=== PATIENT | female | born 1970 | race Caucasian/White ===

== ENCOUNTER 2019-04-11 14:59 | Emergency (ER) | payer MEDICAID ==
--- NOTE | 2019-04-11 15:18 | EDM.PDOC ---
ED HPI GENERAL MEDICAL PROBLEM - General Stated Complaint: L SHOULDER PAIN Time Seen by Provider: 04/11/19 15:12 Source of Information: Reports: Patient History Limitations: Reports: No Limitations - History of Present Illness INITIAL COMMENTS - FREE TEXT/NARRATIVE: pt c/o left shoulder pain X 2 weeks, denies injuries or associated swelling, fever, chills, or Hx of similar problems, report pain is there all the times and worse with any movement of RUE, denies neck pain or any associated tingling / numbness or any other neuro sx. - Related Data Allergies Allergy/AdvReac Type Severity Reaction Status Date / Time No Known Allergies Allergy Verified 04/11/19 16:27 Home Meds: Home Meds diazePAM [Valium] 10 mg PO TID PRN #20 tab 04/11/19 [Rx] ED ROS GENERAL - Review of Systems Review Of Systems: See Below Constitutional: Reports: No Symptoms Respiratory: Reports: No Symptoms Cardiovascular: Reports: No Symptoms GI/Abdominal: Reports: No Symptoms Musculoskeletal: Reports: Shoulder Pain. Denies: Back Pain, Hand Pain, Joint Swelling, Muscle Pain, Muscle Stiffness Skin: Reports: No Symptoms Neurological: Reports: No Symptoms Psychiatric: Reports: No Symptoms ED EXAM, GENERAL - Physical Exam Exam: See Below Exam Limited By: No Limitations General Appearance: Alert, Anxious, Mild Distress Nose: Normal Inspection Head: Atraumatic, Normocephalic Neck: Normal Inspection, Supple, Non-Tender, Full Range of Motion Respiratory/Chest: No Respiratory Distress, Lungs Clear Cardiovascular: Normal Peripheral Pulses, Regular Rate, Rhythm, No Edema GI/Abdominal: Normal Bowel Sounds, Soft, Non-Tender Extremities: Normal Inspection, Other (tender over the AC joint on left side . ROM at left shoulder is partially limited secondary to pain. ) Course - Vital Signs Text/Narrative:: xray shows no acute findings. pt has shoulder pain, that seems to be related to degenerative arthritis or rotator cuff syndrome. was given toradol 60 IM, Valium 10, also rx on Valium to be used with OTC antiinflammatories, pt to follow with PCP in 1 week for re-check. Last Recorded V/S: Last Vital Signs Temp 36.2 C 04/11/19 15:11 Pulse 86 04/11/19 15:11 Resp 16 04/11/19 15:11 BP 132/79 04/11/19 15:11 Pulse Ox 96 04/11/19 15:11 - Orders/Labs/Meds Meds: Medications Discontinued Medications Generic Name Dose Route Start Last Admin Trade Name Lorelei PRN Reason Stop Dose Admin Diazepam 10 mg 04/11/19 15:19 04/11/19 15:39 Valium IM 04/11/19 15:20 10 mg ONETIME ONE Administration Ketorolac Tromethamine 60 mg 04/11/19 15:19 04/11/19 15:37 Toradol IM 04/11/19 15:20 60 mg ONETIME ONE Administration Departure - Departure Time of Disposition: 16:00 Clinical Impression: Shoulder pain - Discharge Information Prescriptions: diazePAM [Valium] 10 mg PO TID PRN #20 tab PRN Reason: Pain Instructions: Shoulder Pain, [id number] Referrals: Tana Hicks NP [Primary Care Provider] - Forms: ED Department Discharge Sepsis Event Note - Focused Exam Date Exam was Performed: 05/17/19 Time Exam was Performed: 07:34
[2019-04-11] MEDS ORDERED: Ketorolac 60 MG/2 ML SDV IM ONE (15:19)
--- NOTE | 2019-04-13 12:24 | CR ---
INDICATION: Left shoulder pain, no known trauma. LEFT SHOULDER: Three views of the left shoulder revealed no evidence of a fracture, dislocation or other significant bone or joint abnormality, including at the adjacent lung and left ribs. MTDD
== END 2019-04-11 17:25 ==
LOC: FB.ED 14:59
DX: M25.512 Pain in left shoulder (principal)
CPT/HCPCS: 73030-LT; 96372; 96374; 99283-25; J1885; J3360

== ENCOUNTER 2021-03-11 18:32 | Emergency (ER) | payer MEDICAID ==
[2021-03-11] MEDS ORDERED: Ketorolac 30 MG/ML SDV IM ONE (19:07)
[2021-03-11] MEDS ORDERED: Sodium Chloride 0.9% 10 ML Syringe FLUSH PRN (19:10)
[2021-03-11] MEDS ORDERED: Sodium Chloride 0.9% 1,000 ML IV ONE (19:11)
[2021-03-11 19:49] LABS: BASE EXCESS VENOUS,POC 2 mmol/L (-2 - 3+); PCO2 VENOUS,POC 46 mmHg (41-51); PH VENOUS,POC 7.38 pH Units (7.32-7.43)
[2021-03-11] MEDS ORDERED: Ketorolac 30 MG/ML SDV IVPUSH ONE (20:22)
[2021-03-11] MEDS ORDERED: Insulin Regular, Human 100 Units/ML 3 ML Vial IV ONE (20:22)
[2021-03-11] MEDS ORDERED: Glucagon,Human Recombinant 1 MG Vial IM PRN (20:22)
[2021-03-11] MEDS ORDERED: 50% Dextrose in Water 50 ML Syringe IVPUSH PRN (20:22)
[2021-03-11] MEDS ORDERED: cefTRIAXone 1 GM Vial IVPUSH ONE (21:54)
--- NOTE | 2021-03-11 23:14 | EDM.PDOC ---
ED HPI GENERAL MEDICAL PROBLEM - General Chief Complaint: Back Pain or Injury Stated Complaint: BACK PAIN Time Seen by Provider: 03/11/21 18:45 Source of Information: Reports: Patient History Limitations: Reports: No Limitations - History of Present Illness INITIAL COMMENTS - FREE TEXT/NARRATIVE: 50-year-old female presents to the emergency department via ambulance from her home with her Thomas to lower lumbar back pain. 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 She reports that beginning last night the pain much worse. She states it came on after she stood up for longer than she normally does while cooking and she developed sharp and spasm-like pain in her entire lower back about mid lumbar region to her tailbone. She states that she is followed by a buildings painter in and she is on gabapentin and trazodone for her pain. She has had no nausea or vomiting. She has had no bowel or bladder control problems. She has no leg weakness. Been no fevers or chills. She denies any dysuria or hematuria. She is a diabetic and when asked how her sugars are running, she states "I'm sure they're high" and tells me that she really has not checked her blood sugar for quite some time. She has no abdominal pain. No chest pain or shortness of tristan th. There are no other associated signs or symptoms. There are no other modifying factors. Onset: Other (Ongoing back pain for 4 years. Worsening since yesterday evening.) Duration: Getting Worse Quality: Reports: Sharp, Other (Spasm-like) Severity: Severe Improves with: Reports: Rest Worsens with: Reports: Other (Palpation), Movement Context: Reports: Other (As above. No known trauma to the area.) Associated Symptoms: Reports: No Other Symptoms (Except as above.) Treatments ANTISQUEAK FILLER: Reports: Other (see below) (Nothing.) Back pain Pain Score (Numeric/FACES): 10 - Related Data Allergies Allergy/AdvReac Type Severity Reaction Status Date / Time No Known Allergies Allergy Verified 03/11/21 20:12 Home Meds: Home Meds diazePAM [Valium] 10 mg PO TID PRN #20 tab 04/11/19 [Rx] Ketorolac [Toradol] 10 mg PO Q6H PRN #20 tab 03/11/21 [Rx] diazePAM [Valium.] 5 mg PO QID PRN #10 tab 03/11/21 [Rx] Sulfamethoxazole/Trimethoprim [Septra DS] 1 each PO BID 7 Days #14 tab 03/12/21 [Rx] Past Medical History HEENT History: Reports: Glaucoma Musculoskeletal History: Reports: Back Pain, Chronic, Other (See Below) Other Musculoskeletal History: Left shoulder pain ratiating to left wrist. Endocrine/Metabolic History: Reports: Diabetes, Type II, Obesity/BMI 30+ - Past Surgical History Female Surgical History: Reports: Section Musculoskeletal Surgical History: Reports: ORIF (Left elbow) Social & Family History - Tobacco Use Tobacco Use Status *Q: Never Tobacco User Second Hand Smoke Exposure: No - Caffeine Use Caffeine Use: Reports: Soda - Recreational Drug Use Recreational Drug Use: No - Living Situation & Occupation Living situation: Reports: , with Spouse Occupation: Unemployed ED ROS GENERAL - Review of Systems Review Of Systems: See Below Constitutional: Denies: Fever, Chills, Diaphoresis HEENT: Denies: Throat Pain, Throat Swelling Respiratory: Denies: Shortness of Breath, Pleuritic Chest Pain, Cough Cardiovascular: Denies: Chest Pain, Syncope Endocrine: Reports: Fatigue GI/Abdominal: Denies: Abdominal Pain, Nausea, Vomiting : Denies: Dysuria Musculoskeletal: Reports: Back Pain. Denies: Neck Pain, Arm Pain, Leg Pain Skin: Denies: Diaphoresis, Rash, Wound Neurological: Denies: Dizziness, Syncope, Weakness Psychiatric: Denies: Confusion Hematologic/Lymphatic: Denies: Easy Bleeding, Easy Bruising ED EXAM, GENERAL - Physical Exam Exam: See Below Exam Limited By: No Limitations General Appearance: Alert, Moderate Distress (Appears in acute pain. Otherwise appears nontoxic.), Obese Eye Exam: Bilateral Eye: EOMI, Normal Inspection, Other Ears: Normal External Exam, Hearing Grossly Normal Ear Exam: Bilateral Ear: Auricle Normal Nose: Normal Inspection, Normal Mucosa, No Blood Throat/Mouth: Normal Voice, No Airway Compromise, Other (Dry mucous membranes. No ketotic breath.) Head: Atraumatic Neck: Normal Inspection, Supple, Non-Tender Respiratory/Chest: No Respiratory Distress, Lungs Clear, Normal Breath Sounds, No Accessory Muscle Use, Chest Non-Tender Cardiovascular: Normal Peripheral Pulses, Regular Rate, Rhythm, No Murmur Peripheral Pulses: 2+: Radial (L), Radial (R) GI/Abdominal: Normal Bowel Sounds, Soft, Non-Tender, No Mass Back Exam: Decreased Range of Motion, Muscle Spasm, Paraspinal Tenderness, Vertebral Tenderness, Other (No crepitus or bony deformity.). No: CVA Tenderness (R), CVA Tenderness (L) Extremities: Normal Inspection, Normal Range of Motion, Normal Capillary Refill Neurological: Alert, Oriented, CN II-XII Intact, Normal Cognition, No Motor/Sensory Deficits Psychiatric: Anxious Skin Exam: Warm, Dry, Intact, Normal Color, No Rash Course - Vital Signs Last Recorded V/S: Last Vital Signs Temp 36.6 C 03/12/21 00:00 Pulse 82 03/12/21 00:00 Resp 18 03/12/21 00:00 BP 132/85 03/12/21 00:00 Pulse Ox 97 03/12/21 00:00 - Orders/Labs/Meds Orders: Active Orders 24 hr Category Date Time Status Peripheral IV Insertion Adult [OM.PC] Routine Oth 03/11/21 19:10 Ordered Labs: Laboratory Tests 03/11/21 03/11/21 03/11/21 Range/Units 18:50 19:09 19:28 WBC 8.2 (3.0-10.3) x10-3/uL RBC 4.69 (3.60-5.20) x10(6)uL Hgb 12.9 (11.4-15.5) g/dL Hct 39.4 (34.2-48.2) % MCV 84.0 (76.7-100.5) fL MCH 27.5 (23.9-33.9) pg MCHC 32.7 (31.9-34.8) g/dL RDW 13.0 (12.3-16.5) % Plt Count 216 (151-488) x10(3)uL MPV 7.3 (7.1-12.4) fL Neut % (Auto) 69.1 (30.8-76.2) % Lymph % (Auto) 23.2 (18.4-52.1) % [place] % (Auto) 5.0 (4.4-15.7) % Eos % (Auto) 2.0 (0.6-8.1) % Baso % (Auto) 0.7 (0.2-1.5) % Neut # (Auto) 5.7 (1.5-6.3) x10-3/uL Lymph # (Auto) 1.9 (1.0-4.4) x10-3/uL [place] # (Auto) 0.4 (0.3-1.0) x10-3/uL Eos # (Auto) 0.2 (0.0-0.8) x10-3/uL Baso # (Auto) 0.1 (0.0-0.1) x10-3/uL POC VBG pH (7.32-7.43) pH Units POC VBG pCO2 (41-51) mmHg POC VBG HCO3 (22-29) mmol/L VBG Base Excess (-2 - 3+) mmol/L O2 Delivery Device Oxygen Flow Rate LPM Sodium (135-145) mmol/L Potassium (3.5-5.3) mmol/L Chloride (100-110) mmol/L Carbon Dioxide (21-32) mmol/L BUN (7-18) mg/dL Creatinine (0.55-1.02) mg/dL Est Cr Clr Drug Dosing mL/min Estimated GFR (MDRD) (>60) BUN/Creatinine Ratio (9-20) Glucose (80-116) mg/dL POC Glucose 564 H* (80-116) mg/dL Calcium (8.6-10.2) mg/dL Magnesium (1.8-2.5) mg/dL Total Bilirubin (0.1-1.3) mg/dL AST (5-25) IU/L ALT (12-36) U/L Alkaline Phosphatase (56-112) IU/L Total Protein (6.0-8.0) g/dL Albumin (3.5-5.2) g/dL Globulin g/dL Albumin/Globulin Ratio Urine Color Yellow (YELLOW) Urine Appearance Slightly cloudy (CLEAR) Urine pH 6.0 (5.0-6.5) Ur Specific [place] 1.010 (1.010-1.025) Urine Protein Negative (NEGATIVE) mg/dL Urine Glucose (UA) >1000 H (NORMAL) mg/dL Urine Ketones Negative (NEGATIVE) mg/dL Urine Occult Blood Moderate H (NEGATIVE) Urine Nitrite Negative (NEGATIVE) Urine Bilirubin Negative (NEGATIVE) Urine Urobilinogen Normal (NEGATIVE) mg/dL Ur Leukocyte Esterase Large H (NEGATIVE) Urine RBC 5-10 H (0-5) Urine WBC 30-40 H (0-5) Ur Squamous Epith Cells Occasional (NS,R,O) Urine Bacteria Few H (NS) 03/11/21 03/11/21 03/11/21 Range/Units 19:28 19:45 21:58 WBC (3.0-10.3) x10-3/uL RBC (3.60-5.20) x10(6)uL Hgb (11.4-15.5) g/dL Hct (34.2-48.2) % MCV (76.7-100.5) fL MCH (23.9-33.9) pg MCHC (31.9-34.8) g/dL RDW (12.3-16.5) % Plt Count (151-488) x10(3)uL MPV (7.1-12.4) fL Neut % (Auto) (30.8-76.2) % Lymph % (Auto) (18.4-52.1) % [place] % (Auto) (4.4-15.7) % Eos % (Auto) (0.6-8.1) % Baso % (Auto) (0.2-1.5) % Neut # (Auto) (1.5-6.3) x10-3/uL Lymph # (Auto) (1.0-4.4) x10-3/uL [place] # (Auto) (0.3-1.0) x10-3/uL Eos # (Auto) (0.0-0.8) x10-3/uL Baso # (Auto) (0.0-0.1) x10-3/uL POC VBG pH 7.38 (7.32-7.43) pH Units POC VBG pCO2 46 (41-51) mmHg POC VBG HCO3 28 (22-29) mmol/L VBG Base Excess 2 (-2 - 3+) mmol/L O2 Delivery Device Room air Oxygen Flow Rate 0 LPM Sodium 127 L (135-145) mmol/L Potassium 4.3 (3.5-5.3) mmol/L Chloride 93 L (100-110) mmol/L Carbon Dioxide 30 (21-32) mmol/L BUN 10 (7-18) mg/dL Creatinine 1.1 H (0.55-1.02) mg/dL Est Cr Clr Drug Dosing 49.49 mL/min Estimated GFR (MDRD) 52 L (>60) BUN/Creatinine Ratio 9.1 (9-20) Glucose 624 H* (80-116) mg/dL POC Glucose 499 H* (80-116) mg/dL Calcium 9.1 (8.6-10.2) mg/dL Magnesium 1.8 (1.8-2.5) mg/dL Total Bilirubin 0.4 (0.1-1.3) mg/dL AST 7 (5-25) IU/L ALT 20 (12-36) U/L Alkaline Phosphatase 120 H (56-112) IU/L Total Protein 8.8 H (6.0-8.0) g/dL Albumin 3.1 L (3.5-5.2) g/dL Globulin 5.7 g/dL Albumin/Globulin Ratio 0.5 Urine Color (YELLOW) Urine Appearance (CLEAR) Urine pH (5.0-6.5) Ur Specific [place] (1.010-1.025) Urine Protein (NEGATIVE) mg/dL Urine Glucose (UA) (NORMAL) mg/dL Urine Ketones (NEGATIVE) mg/dL Urine Occult Blood (NEGATIVE) Urine Nitrite (NEGATIVE) Urine Bilirubin (NEGATIVE) Urine Urobilinogen (NEGATIVE) mg/dL Ur Leukocyte Esterase (NEGATIVE) Urine RBC (0-5) Urine WBC (0-5) Ur Squamous Epith Cells (NS,R,O) Urine Bacteria (NS) 03/11/21 03/11/21 Range/Units 22:55 23:54 WBC (3.0-10.3) x10-3/uL RBC (3.60-5.20) x10(6)uL Hgb (11.4-15.5) g/dL Hct (34.2-48.2) % MCV (76.7-100.5) fL MCH (23.9-33.9) pg MCHC (31.9-34.8) g/dL RDW (12.3-16.5) % Plt Count (151-488) x10(3)uL MPV (7.1-12.4) fL Neut % (Auto) (30.8-76.2) % Lymph % (Auto) (18.4-52.1) % [place] % (Auto) (4.4-15.7) % Eos % (Auto) (0.6-8.1) % Baso % (Auto) (0.2-1.5) % Neut # (Auto) (1.5-6.3) x10-3/uL Lymph # (Auto) (1.0-4.4) x10-3/uL [place] # (Auto) (0.3-1.0) x10-3/uL Eos # (Auto) (0.0-0.8) x10-3/uL Baso # (Auto) (0.0-0.1) x10-3/uL POC VBG pH (7.32-7.43) pH Units POC VBG pCO2 (41-51) mmHg POC VBG HCO3 (22-29) mmol/L VBG Base Excess (-2 - 3+) mmol/L O2 Delivery Device Oxygen Flow Rate LPM Sodium (135-145) mmol/L Potassium (3.5-5.3) mmol/L Chloride (100-110) mmol/L Carbon Dioxide (21-32) mmol/L BUN (7-18) mg/dL Creatinine (0.55-1.02) mg/dL Est Cr Clr Drug Dosing mL/min Estimated GFR (MDRD) (>60) BUN/Creatinine Ratio (9-20) Glucose (80-116) mg/dL POC Glucose 406 H* D 395 H (80-116) mg/dL Calcium (8.6-10.2) mg/dL Magnesium (1.8-2.5) mg/dL Total Bilirubin (0.1-1.3) mg/dL AST (5-25) IU/L ALT (12-36) U/L Alkaline Phosphatase (56-112) IU/L Total Protein (6.0-8.0) g/dL Albumin (3.5-5.2) g/dL Globulin g/dL Albumin/Globulin Ratio Urine Color (YELLOW) Urine Appearance (CLEAR) Urine pH (5.0-6.5) Ur Specific [place] (1.010-1.025) Urine Protein (NEGATIVE) mg/dL Urine Glucose (UA) (NORMAL) mg/dL Urine Ketones (NEGATIVE) mg/dL Urine Occult Blood (NEGATIVE) Urine Nitrite (NEGATIVE) Urine Bilirubin (NEGATIVE) Urine Urobilinogen (NEGATIVE) mg/dL Ur Leukocyte Esterase (NEGATIVE) Urine RBC (0-5) Urine WBC (0-5) Ur Squamous Epith Cells (NS,R,O) Urine Bacteria (NS) Meds: Medications Discontinued Medications Generic Name Dose Route Start Last Admin Trade Name Freq PRN Reason Stop Dose Admin Ceftriaxone Sodium 1 gm 03/11/21 21:54 03/11/21 22:01 Ceftriaxone 1 Gm Vial IVPUSH 03/11/21 21:55 1 gm ONETIME ONE Administration Dextrose/Water 50 ml 03/11/21 20:22 50% Dextrose In Water 50 Ml Syringe IVPUSH ASDIRECTED PRN Hypoglycemia Diazepam 10 mg 03/11/21 19:07 03/11/21 21:36 Diazepam 10 Mg/2 Ml Syringe IM 03/11/21 19:08 Not Given ONETIME ONE Diazepam 5 mg 03/11/21 19:11 03/11/21 20:19 Diazepam 10 Mg/2 Ml Syringe IVPUSH 03/11/21 19:12 5 mg ONETIME ONE Administration Glucagon 1 mg 03/11/21 20:22 Glucagon,Human Recombinant 1 Mg Vial IM ASDIRECTED PRN Hypoglycemia Sodium Chloride 1,000 mls @ 999 mls/hr 03/11/21 19:11 03/11/21 20:19 Normal Saline IV 03/11/21 20:11 999 mls/hr .BOLUS ONE Administration Insulin Human Regular 12 unit 03/11/21 20:22 03/11/21 21:38 Insulin Regular, Human 100 Units/Ml 3 Ml Vial IV 03/11/21 20:23 12 units ONETIME ONE Administration Ketorolac Tromethamine 30 mg 03/11/21 19:07 03/11/21 21:36 Ketorolac 30 Mg/Ml Sdv IM 03/11/21 19:08 Not Given ONETIME ONE Ketorolac Tromethamine 30 mg 03/11/21 20:22 03/11/21 21:38 Ketorolac 30 Mg/Ml Sdv IVPUSH 03/11/21 20:23 30 mg ONETIME ONE Administration Sodium Chloride 10 ml 03/11/21 19:10 03/11/21 22:02 Sodium Chloride 0.9% 10 Ml Syringe FLUSH 10 ml ASDIRECTED PRN Administration Keep Vein Open - Re-Assessments/Exams Free Text/Narrative Re-Assessment/Exam: 03/11/21 20:40: White blood cell count was 8.2. Hemoglobin is 12.9. Platelet count is normal. Venous pH 7.38 with a PCO2 of 46. Sodium is 127. Potassium is 4.3. Bicarbonate was 30. BUN is 10 and creatinine is 1.1. Glucose is 624. Magnesium was 1.8. LFTs are normal. A urinalysis did show greater than 1000 glucose and it also showed red blood cells and white blood cells with bacteria present. This was sent for culture. The patient did have an IV established and was given IV normal saline as a bolus. She was also given insulin 12 units regular IV. She was given IV Valium for her back muscle pain and muscle spasm. She was also given Toradol IV for her pain and she is resting much more comfortably. She also is able to move better. We will continue to IV hydrate her and follow her blood sugars every hour until they have been stabilized. 03/11/21 23:00: The patient is awake and alert. She is not tachycardic. Her blood sugar is down to the 400 range and she is awake and alert. She is feeling better with decreased pain and increased mobility. Her other labs are reassuring except for evidence of a urinary tract infection. She was treated with Rocephin 1 g IV for this. I did discuss with the patient that she is not following her diabetic diet and her diabetes is not under control. She needs to increase her fluid intake. She should avoid any constipated sweets and she should avoid any soda pop with sugar as well. She does need to follow-up with her primary provider this week. I will give her a prescription for Bactrim DS to treat the urinary tract infection, a prescription for Valium for muscle relaxer and oral Toradol for pain. Precautions and reasons for return to the emergency department were discussed with the patient while she was in the emergency department and were detailed in the patient's discharge instructions. 03/12/21 23:55: Her repeat blood sugar is now 395. She is awake and alert. She is much more mobile than she was and her pain is down to a 4/10. Departure - Departure Time of Disposition: 23:16 Disposition: Home, Self-Care 01 Condition: Fair Clinical Impression: Acute exacerbation of chronic low back pain Diabetes mellitus type 2, uncontrolled Qualifiers: Glycemic state: with hyperglycemia Qualified Code(s): E11.65 - Type 2 diabetes mellitus with hyperglycemia UTI (urinary tract infection) Qualifiers: Urinary tract infection type: site unspecified Hematuria presence: without hematuria Qualified Code(s): N39.0 - Urinary tract infection, site not specified - Discharge Information Prescriptions: Sulfamethoxazole/Trimethoprim [Septra DS] 1 each PO BID 7 Days #14 tab Ketorolac [Toradol] 10 mg PO Q6H PRN #20 tab PRN Reason: Moderate to severe pain diazePAM [Valium.] 5 mg PO QID PRN #10 tab PRN Reason: Muscle spasm or muscle pain Instructions: Urinary Tract Infection, Adult, [id number], Type 2 Diabetes Mellitus, Self-Care, Adult, [id number] Referrals: Tana Hicks NP [Primary Care Provider] - Forms: ED Department Discharge Additional Instructions: Your blood sugar was greater than 600 in the emergency department initially. We have gotten it down to around 400 after some IV fluids and some insulin given to you. You also appear to have a urinary tract infection. Your sodium was somewhat low but this was artificially lowered because of your elevated blood sugar. You do appear to be having an acute exacerbation of your chronic back pain. Medication as prescribed for this (Valium 5 mg, Toradol 10 mg). Follow-up with your primary doctor this week. You need to check your blood sugars more frequently and you need to follow your diabetic diet. You also need to increase your fluid intake and you should avoid any drink that has sugar in it. Back to the emergency department for leg weakness, bowel or bladder control problems, fever or any other concerning signs or symptoms. Sepsis Event Note (ED) - Evaluation Sepsis Screening Result: No Definite Risk - Focused Exam Vital Signs: Vital Signs Temp Pulse Resp BP Pulse Ox 03/12/21 00:00 36.6 C 82 18 132/85 97 - My Orders Last 24 Hours: My Active Orders 03/11/21 19:10 Peripheral IV Insertion Adult [OM.PC] Routine - Assessment/Plan Last 24 Hours: My Active Orders 03/11/21 19:10 Peripheral IV Insertion Adult [OM.PC] Routine
== END 2021-03-12 00:20 | disposition home or self-care (01) ==
LOC: FB.ED 18:32 → SUPCPDRO 18:32 → FB.ED 03-12 00:20
DX: N39.0 Urinary tract infection, site not specified (principal); E11.65 Type 2 diabetes mellitus with hyperglycemia; E66.9 Obesity, unspecified; Z68.30 Body mass index [BMI] 30.0-30.9, adult
CPT/HCPCS: 36415; 80053; 81001; 82947; 83735; 85025; 96374; 96375; 99283; J0696; J1815; J1885; J3360; J7030

== ENCOUNTER 2022-11-20 03:39 | Emergency (ER) | payer MEDICAID ==
[2022-11-20] MEDS: Sodium Chloride 0.9% 1,000 ML IV SCH ×2 (04:12→05:50)
[2022-11-20] MEDS: Morphine 4 MG/ML VIAL IVPUSH ONE (04:14)
[2022-11-20] MEDS: Ondansetron 4 MG/2 ML SDV IVPUSH ONE (04:14)
[2022-11-20 04:35] LABS: A/G RATIO 0.8; ALANINE AMINOTRANSFERASE,ALT 21 U/L (12-36); ALBUMIN 3.3 g/dL (3.5-5.2); ALKALINE PHOSPHATASE 121 IU/L (56-112); ASPARTATE AMNIOTRANSFERASE,AST 13 IU/L (5-25); BILIRUBIN TOTAL 0.6 mg/dL (0.1-1.3); BLOOD UREA NITROGEN,BUN 16 mg/dL (7-18); CALCIUM 9.3 mg/dL (8.6-10.2); CARBON DIOXIDE,CO2 24 mmol/L (21-32); CHLORIDE,CL 95 mmol/L (100-110); EST CRCL DRUG DOSING (CG) 63.27 mL/min; ESTIMATED GFR 67 mL/min (>60); POTASSIUM,K 4.2 mmol/L (3.5-5.3); PROTEIN TOTAL,TP 7.6 g/dL (6.0-8.0); SODIUM,NA 130 mmol/L (135-145)
[2022-11-20] MEDS ORDERED: 50% Dextrose in Water 50 ML Syringe IVPUSH PRN (04:42)
[2022-11-20] MEDS ORDERED: Glucagon,Human Recombinant 1 MG Vial IM PRN (04:42)
[2022-11-20 04:43] LABS: BASOPHILS PERCENT AUTO 0.4 % (0.2-1.5); EOSINOPHILS ABSOLUTE AUTO 0.2 x10-3/uL (0.0-0.8); EOSINOPHILS PERCENT AUTO 1.7 % (0.6-8.1); HEMATOCRIT 40.5 % (34.2-48.2); HEMOGLOBIN 13.5 g/dL (11.4-15.5); MEAN CORPUSCULAR HGB CONC 33.4 g/dL (31.9-34.8); MEAN CORPUSCULAR VOLUME 83.6 fL (76.7-100.5); MEAN PLATELET VOLUME 7.5 fL (7.1-12.4); MONOCYTES ABSOLUTE AUTO 0.6 x10-3/uL (0.3-1.0); MONOCYTES PERCENT AUTO 5.3 % (4.4-15.7); NEUTROPHILS ABSOLUTE AUTO 9.7 x10-3/uL (1.5-6.3); NEUTROPHILS PERCENT AUTO 83.6 % (30.8-76.2); PLATELET COUNT,PLT 200 x10(3)uL (151-488); RED BLOOD CELL COUNT 4.84 x10(6)uL (3.60-5.20); RED CELL DISTRIBUTION WIDTH 12.9 % (12.3-16.5); WHITE BLOOD CELL COUNT,WBC 11.6 x10-3/uL (3.0-10.3)
[2022-11-20] MEDS: Prochlorperazine 10 MG in Sodium Chloride 0.9% 50 ML IV ONE (04:48)
[2022-11-20] MEDS: Insulin Lispro 100 Unit/ML 3 ML KwikPen SUBCUT STA (04:51)
[2022-11-20 04:56] LABS: GLUCOSE RANDOM 539 mg/dL (80-116)
[2022-11-20 05:27] LABS: BILIRUBIN,URINE NEGATIVE (NEGATIVE); GLUCOSE,URINE >1000 mg/dL (NORMAL); KETONES,URINE 15 mg/dL (NEGATIVE); LEUKOCYTE ESTERASE,URINE LARGE (NEGATIVE); NITRITE,URINE POSITIVE (NEGATIVE); OCCULT BLOOD,URINE LARGE (NEGATIVE); PROTEIN,URINE NEGATIVE (NEGATIVE); UROBILINOGEN,URINE NORMAL (NEGATIVE)
[2022-11-20 05:27] LABS: HEMOGLOBIN A1C > 16.0 % (<5.7)
[2022-11-20 05:30] LABS: APPEARANCE,URINE CLOUDY (CLEAR); COLOR,URINE YELLOW (YELLOW)
[2022-11-20 05:31] LABS: BACTERIA,URINE MODERATE (NS); SQUAMOUS EPITHELIAL CELLS,UR OCCASIONAL (NS,R,O); WBC,URINE 75-100 (0-5)
[2022-11-20] MEDS: Iopamidol 755 Mg/ML 200 ML Bottle IV ONE (05:40)
[2022-11-20] MEDS: Sulfamethoxazole/Trimethoprim 800-160 MG Tab PO ONE (06:45)
[2022-11-20] MEDS: Ketorolac 30 MG/ML SDV IVPUSH ONE (06:45)
== END 2022-11-20 07:13 | disposition home or self-care (01) ==
LOC: FB.ED 03:39
DX: N30.90 Cystitis, unspecified without hematuria (principal); E78.00 Pure hypercholesterolemia, unspecified; I10 Essential (primary) hypertension; E11.9 Type 2 diabetes mellitus without complications; E66.9 Obesity, unspecified; Z68.34 Body mass index [BMI] 34.0-34.9, adult; Z98.890 Other specified postprocedural states; Z79.899 Other long term (current) drug therapy; Z79.4 Long term (current) use of insulin
CPT/HCPCS: 36415; 74177; 80053; 81001; 82150; 82947; 83036; 83690; 85025; 87086; 87088; 87186; 96361; 96365; 96375; 99285; A9270; J0780; J1815; J1885; J2270; J2405; J3490; J7030; Q9967

== ENCOUNTER 2023-07-20 18:17 | Emergency (ER) | payer MEDICAID ==
[2023-07-20] MEDS: Sodium Chloride 0.9% 10 ML Syringe FLUSH PRN (18:45)
[2023-07-20] MEDS: Sodium Chloride 0.9% 1,000 ML IV SCH (18:50)
[2023-07-20] MEDS: HYDROmorphone 2 MG/ML SDV IVPUSH ONE (18:57)
[2023-07-20 19:04] LABS: HEMATOCRIT 34.8 % (34.2-48.2); HEMOGLOBIN 11.6 g/dL (11.4-15.5); MEAN CORPUSCULAR HEMOGLOBIN 27.1 pg (23.9-33.9); MEAN CORPUSCULAR HGB CONC 33.2 g/dL (31.9-34.8); MEAN CORPUSCULAR VOLUME 81.6 fL (76.7-100.5); MEAN PLATELET VOLUME 7.3 fL (7.1-12.4); PLATELET COUNT,PLT 308 x10(3)uL (151-488); RED BLOOD CELL COUNT 4.26 x10(6)uL (3.60-5.20); RED CELL DISTRIBUTION WIDTH 13.8 % (12.3-16.5); WHITE BLOOD CELL COUNT,WBC 18.4 x10-3/uL (3.0-10.3)
[2023-07-20 19:14] LABS: TROPONIN I 4.9 pg/mL (4.0-60.3)
[2023-07-20 19:17] LABS: A/G RATIO 0.4; ALANINE AMINOTRANSFERASE,ALT 13 U/L (12-36); ALBUMIN 2.3 g/dL (3.5-5.2); ALKALINE PHOSPHATASE 111 IU/L (56-112); ASPARTATE AMNIOTRANSFERASE,AST 11 IU/L (5-25); BILIRUBIN TOTAL 0.7 mg/dL (0.1-1.3); BLOOD UREA NITROGEN,BUN 12 mg/dL (7-18); CARBON DIOXIDE,CO2 27 mmol/L (21-32); CHLORIDE,CL 94 mmol/L (100-110); CREATININE 1.2 mg/dL (0.55-1.02); EST CRCL DRUG DOSING (CG) 42.39 mL/min; ESTIMATED GFR 54 mL/min (>60); POTASSIUM,K 3.7 mmol/L (3.5-5.3); PROTEIN TOTAL,TP 8.7 g/dL (6.0-8.0); SODIUM,NA 132 mmol/L (135-145)
[2023-07-20 19:31] LABS: GLUCOSE RANDOM 429 mg/dL (80-116)
[2023-07-20 19:33] LABS: C-REACTIVE PROTEIN 26.02 mg/dL (<0.50)
[2023-07-20] MEDS: Ondansetron 4 MG/2 ML SDV IVPUSH ONE (19:46)
[2023-07-20 19:48] LABS: BAND PERCENT MAN 5 % (0-6); LYMPHOCYTES PERCENT MAN 13 % (13-37); MONOCYTES PERCENT MAN 5 % (4-12); SEG NEUTROPHILS PERCENT MAN 77 % (46-82)
[2023-07-20 19:59] LABS: INFLUENZA A NAA NEGATIVE (NEGATIVE); INFLUENZA B NAA NEGATIVE (NEGATIVE); RESPIRATORY SYNCYTIAL VIR NAA NEGATIVE (NEGATIVE)
[2023-07-20 20:00] LABS: CORONAVIRUS COVID-19 NAA NEGATIVE (NEGATIVE)
[2023-07-20 20:19] LABS: BILIRUBIN,URINE NEGATIVE (NEGATIVE); GLUCOSE,URINE >1000 mg/dL (NORMAL); KETONES,URINE NEGATIVE (NEGATIVE); LEUKOCYTE ESTERASE,URINE LARGE (NEGATIVE); NITRITE,URINE NEGATIVE (NEGATIVE); OCCULT BLOOD,URINE LARGE (NEGATIVE); PROTEIN,URINE 100 mg/dL (NEGATIVE); UROBILINOGEN,URINE 1 mg/dL (NEGATIVE)
[2023-07-20 20:24] LABS: APPEARANCE,URINE CLOUDY (CLEAR); COLOR,URINE YELLOW (YELLOW); SQUAMOUS EPITHELIAL CELLS,UR OCCASIONAL (NS,R,O); WBC,URINE PACKED (0-5)
[2023-07-20 20:25] LABS: BACTERIA,URINE MODERATE (NS)
[2023-07-20] MEDS: Iopamidol 755 Mg/ML 100 ML Bottle IV SCH (20:37)
[2023-07-20] MEDS ORDERED: VANCOmycin 1 GM/200 ML 1 GM in Premix Bag 1 BAG IV ONE (21:00)
[2023-07-20] MEDS: Ampicillin/Sulbactam Na 3 GM in Sodium Chloride 0.9% 100 ML IV ONE (22:01)
[2023-07-20 22:45] LABS: LACTIC ACID 1.7 mmol/L (0.4-2.0)
[2023-07-20] MEDS: VANCOmycin 2 GM/400 ML 2 GM in Premix Bag 1 BAG IV ONE (23:06)
== END 2023-07-20 23:33 ==
LOC: FB.ED 18:17
DX: G89.29 Other chronic pain (principal); M54.50 Low back pain, unspecified; N30.00 Acute cystitis without hematuria; E11.65 Type 2 diabetes mellitus with hyperglycemia; R06.02 Shortness of breath; I10 Essential (primary) hypertension; E78.00 Pure hypercholesterolemia, unspecified; E66.9 Obesity, unspecified; Z68.39 Body mass index [BMI] 39.0-39.9, adult; Z79.4 Long term (current) use of insulin; Z79.899 Other long term (current) drug therapy
CPT/HCPCS: 0241U; 36415; 71260; 74177; 80053; 81001; 82550; 83605; 83880; 84484; 85025; 85379; 86140; 87040; 93005; 93010; 96361; 96365; 96367; 96375; 99285; J0295; J1170; J2405; J3370; J3490; J7030; Q9967

== ENCOUNTER 2024-03-20 18:38 | Inpatient (IN) | payer MEDICAID ==
[2024-03-20] MEDS: Sodium Chloride 0.9% 10 ML Syringe FLUSH PRN (18:48)
[2024-03-20 19:25] LABS: BASOPHILS ABSOLUTE AUTO 0.1 x10-3/uL (0.0-0.1); BASOPHILS PERCENT AUTO 0.5 % (0.2-1.5); EOSINOPHILS ABSOLUTE AUTO 0.2 x10-3/uL (0.0-0.8); EOSINOPHILS PERCENT AUTO 1.6 % (0.6-8.1); HEMATOCRIT 36.3 % (34.2-48.2); HEMOGLOBIN 12.3 g/dL (11.4-15.5); LYMPHOCYTES ABSOLUTE AUTO 1.4 x10-3/uL (1.0-4.4); LYMPHOCYTES PERCENT AUTO 13.5 % (18.4-52.1); MEAN CORPUSCULAR HEMOGLOBIN 28.4 pg (23.9-33.9); MEAN CORPUSCULAR HGB CONC 33.7 g/dL (31.9-34.8); MEAN CORPUSCULAR VOLUME 84.1 fL (76.7-100.5); MEAN PLATELET VOLUME 7.8 fL (7.1-12.4); MONOCYTES ABSOLUTE AUTO 0.6 x10-3/uL (0.3-1.0); MONOCYTES PERCENT AUTO 5.6 % (4.4-15.7); NEUTROPHILS ABSOLUTE AUTO 8.2 x10-3/uL (1.5-6.3); NEUTROPHILS PERCENT AUTO 78.8 % (30.8-76.2); PLATELET COUNT,PLT 238 x10(3)uL (151-488); RED BLOOD CELL COUNT 4.32 x10(6)uL (3.60-5.20); RED CELL DISTRIBUTION WIDTH 13.1 % (12.3-16.5); WHITE BLOOD CELL COUNT,WBC 10.4 x10-3/uL (3.0-10.3)
[2024-03-20 19:32] LABS: BLOOD UREA NITROGEN,BUN 17 mg/dL (7-18); BUN/CREATININE RATIO 13.1 (9-20); CALCIUM 8.9 mg/dL (8.6-10.2); CARBON DIOXIDE,CO2 25 mmol/L (21-32); CHLORIDE,CL 98 mmol/L (100-110); CREATININE 1.3 mg/dL (0.55-1.02); EST CRCL DRUG DOSING (CG) 38.67 mL/min; ESTIMATED GFR 49 mL/min (>60); POTASSIUM,K 4.6 mmol/L (3.5-5.3); SODIUM,NA 134 mmol/L (135-145)
[2024-03-20 19:33] LABS: BASE EXCESS VENOUS,POC -1 mmol/L (-2 - 3+); PCO2 VENOUS,POC 25 mmHg (41-51); PH VENOUS,POC 7.52 pH Units (7.32-7.43)
[2024-03-20 19:38] LABS: A/G RATIO 0.5; ALANINE AMINOTRANSFERASE,ALT 16 U/L (12-36); ALBUMIN 2.5 g/dL (3.5-5.2); ALKALINE PHOSPHATASE 105 IU/L (56-112); ASPARTATE AMNIOTRANSFERASE,AST 18 IU/L (5-25); BILIRUBIN TOTAL 0.3 mg/dL (0.1-1.3); MAGNESIUM 1.4 mg/dL (1.8-2.5); PROTEIN TOTAL,TP 7.1 g/dL (6.0-8.0)
[2024-03-20 19:42] LABS: GLUCOSE RANDOM 692 mg/dL (80-116)
[2024-03-20] MEDS ORDERED: Glucagon,Human Recombinant 1 MG Vial IM PRN ×2 (19:50→22:50)
[2024-03-20] MEDS ORDERED: 50% Dextrose in Water 50 ML Syringe IVPUSH PRN ×2 (19:50→22:50)
[2024-03-20] MEDS: Insulin Regular, Human 100 Units/ML 10 ML Vial IV ONE (19:59)
[2024-03-20] MEDS: Sodium Chloride 0.9% 1,000 ML IV ONE ×2 (19:59→22:29)
[2024-03-20] MEDS: Albuterol/Ipratropium 3.0-0.5 MG/3 ML Neb Soln NEB ONE (20:00)
[2024-03-20] MEDS: Magnesium Oxide 400 MG Tab PO ONE (20:00)
[2024-03-20 20:12] LABS: INFLUENZA A NAA NEGATIVE (NEGATIVE); INFLUENZA B NAA NEGATIVE (NEGATIVE)
[2024-03-20 20:14] LABS: CORONAVIRUS COVID-19 NAA NEGATIVE (NEGATIVE)
[2024-03-20 20:45] LABS: BILIRUBIN,URINE NEGATIVE (NEGATIVE); GLUCOSE,URINE >1000 mg/dL (NORMAL); KETONES,URINE NEGATIVE (NEGATIVE); LEUKOCYTE ESTERASE,URINE LARGE (NEGATIVE); NITRITE,URINE NEGATIVE (NEGATIVE); OCCULT BLOOD,URINE LARGE (NEGATIVE); PROTEIN,URINE 30 mg/dL (NEGATIVE); UROBILINOGEN,URINE NORMAL (NEGATIVE)
[2024-03-20 20:51] LABS: APPEARANCE,URINE SLIGHTLY CLOUDY (CLEAR); BACTERIA,URINE MODERATE (NS); COLOR,URINE YELLOW (YELLOW); SQUAMOUS EPITHELIAL CELLS,UR FEW (NS,R,O); WBC,URINE 30-40 (0-5)
[2024-03-20] MEDS: cefTRIAXone 2 GM Vial IVPUSH ONE (22:35)
[2024-03-20] MEDS ORDERED: Ondansetron 4 MG/2 ML SDV IV PRN (22:47)
[2024-03-20] MEDS: Insulin Lispro 100 Unit/ML 3 ML KwikPen SUBCUT ONE (23:26)
[2024-03-20] MEDS: Pantoprazole 40 MG Vial IVPUSH SCH (23:26)
[2024-03-20] MEDS: Enoxaparin 40 MG/0.4 ML Syringe SUBCUT SCH (23:26)
[2024-03-20] MEDS: Doxycycline 100 MG in Sodium Chloride 0.9% 100 ML IV SCH (23:27)
[2024-03-20] MEDS: Benzonatate 100 MG Cap PO PRN (23:27)
[2024-03-20] MEDS: Nystatin Topical Powder 15 GM Bottle TOP SCH (23:42)
[2024-03-20] MEDS: Sodium Chloride 0.9% 1,000 ML IV SCH (23:45)
[2024-03-21] MEDS: Magnesium Sulfate/Water Premix 2 GM in Premix Bag 1 BAG IV ONE (00:40)
[2024-03-21] MEDS: Acetaminophen 325 MG Tab PO PRN (00:46)
[2024-03-21] MEDS: Albuterol/Ipratropium 3.0-0.5 MG/3 ML Neb Soln NEB SCH (08:21)
[2024-03-21] MEDS ORDERED: Nystatin Topical Powder 15 GM Bottle TOP SCH (09:00)
[2024-03-21 09:29] LABS: BASOPHILS ABSOLUTE AUTO 0.1 x10-3/uL (0.0-0.1); BASOPHILS PERCENT AUTO 0.9 % (0.2-1.5); EOSINOPHILS ABSOLUTE AUTO 0.2 x10-3/uL (0.0-0.8); EOSINOPHILS PERCENT AUTO 3.2 % (0.6-8.1); HEMATOCRIT 31.7 % (34.2-48.2); HEMOGLOBIN 10.7 g/dL (11.4-15.5); LYMPHOCYTES ABSOLUTE AUTO 2.6 x10-3/uL (1.0-4.4); LYMPHOCYTES PERCENT AUTO 32.8 % (18.4-52.1); MEAN CORPUSCULAR HGB CONC 33.8 g/dL (31.9-34.8); MEAN PLATELET VOLUME 7.1 fL (7.1-12.4); MONOCYTES ABSOLUTE AUTO 0.4 x10-3/uL (0.3-1.0); MONOCYTES PERCENT AUTO 5.5 % (4.4-15.7); NEUTROPHILS ABSOLUTE AUTO 4.6 x10-3/uL (1.5-6.3); NEUTROPHILS PERCENT AUTO 57.6 % (30.8-76.2); PLATELET COUNT,PLT 209 x10(3)uL (151-488); RED BLOOD CELL COUNT 3.83 x10(6)uL (3.60-5.20); RED CELL DISTRIBUTION WIDTH 13.2 % (12.3-16.5); WHITE BLOOD CELL COUNT,WBC 7.9 x10-3/uL (3.0-10.3)
[2024-03-21 09:31] LABS: BLOOD UREA NITROGEN,BUN 12 mg/dL (7-18); CALCIUM 8.2 mg/dL (8.6-10.2); CARBON DIOXIDE,CO2 27 mmol/L (21-32); CHLORIDE,CL 108 mmol/L (100-110); CREATININE 0.8 mg/dL (0.55-1.02); EST CRCL DRUG DOSING (CG) 62.84 mL/min; ESTIMATED GFR 87 mL/min (>60); GLUCOSE RANDOM 264 mg/dL (80-116); MAGNESIUM 1.9 mg/dL (1.8-2.5); POTASSIUM,K 4.3 mmol/L (3.5-5.3); SODIUM,NA 143 mmol/L (135-145)
[2024-03-21] MEDS: Magnesium Oxide 400 MG Tab PO SCH (09:44)
[2024-03-21] MEDS: Doxycycline 100 MG in Sodium Chloride 0.9% 100 ML IV SCH (11:38)
[2024-03-21] MEDS ORDERED: Glucagon,Human Recombinant 1 MG Vial IM PRN ×2 (12:41→12:42)
[2024-03-21] MEDS ORDERED: 50% Dextrose in Water 50 ML Syringe IVPUSH PRN ×2 (12:41→12:42)
[2024-03-21] MEDS: Insulin Lispro 100 Unit/ML 3 ML KwikPen SUBCUT SCH (17:43)
[2024-03-21] MEDS: Gabapentin 300 MG Cap PO SCH (20:18)
[2024-03-21] MEDS: DULoxetine 60 MG Cap PO SCH (20:18)
[2024-03-21] MEDS: Baclofen 10 MG Tab PO SCH (20:18)
[2024-03-21] MEDS: atorvaSTATin 40 MG Tab PO SCH (20:18)
[2024-03-21] MEDS: Aspirin 81 MG Tab.EC PO SCH (20:18)
[2024-03-21] MEDS: traZODone 50 MG Tab PO SCH (20:19)
[2024-03-21] MEDS: Insulin Glargine,Human Rec. Analog 100 Units/ML 3 ML Pen SUBCUT SCH (20:36)
[2024-03-21] MEDS: cefTRIAXone 2 GM Vial IVPUSH SCH (22:23)
[2024-03-22] MEDS: hydrOXYzine HCl 25 MG Tab PO PRN (00:18)
[2024-03-22 09:10] LABS: BASOPHILS ABSOLUTE AUTO 0.1 x10-3/uL (0.0-0.1); BASOPHILS PERCENT AUTO 0.8 % (0.2-1.5); EOSINOPHILS ABSOLUTE AUTO 0.3 x10-3/uL (0.0-0.8); EOSINOPHILS PERCENT AUTO 4.1 % (0.6-8.1); LYMPHOCYTES ABSOLUTE AUTO 2.4 x10-3/uL (1.0-4.4); LYMPHOCYTES PERCENT AUTO 34.7 % (18.4-52.1); MEAN CORPUSCULAR HEMOGLOBIN 27.6 pg (23.9-33.9); MEAN CORPUSCULAR HGB CONC 33.2 g/dL (31.9-34.8); MONOCYTES ABSOLUTE AUTO 0.4 x10-3/uL (0.3-1.0); MONOCYTES PERCENT AUTO 5.3 % (4.4-15.7); NEUTROPHILS ABSOLUTE AUTO 3.8 x10-3/uL (1.5-6.3); NEUTROPHILS PERCENT AUTO 55.1 % (30.8-76.2); PLATELET COUNT,PLT 224 x10(3)uL (151-488); RED BLOOD CELL COUNT 3.98 x10(6)uL (3.60-5.20)
[2024-03-22 09:12] LABS: BLOOD UREA NITROGEN,BUN 11 mg/dL (7-18); BUN/CREATININE RATIO 12.2 (9-20); CALCIUM 8.7 mg/dL (8.6-10.2); CARBON DIOXIDE,CO2 28 mmol/L (21-32); CHLORIDE,CL 107 mmol/L (100-110); CREATININE 0.9 mg/dL (0.55-1.02); EST CRCL DRUG DOSING (CG) 55.86 mL/min; ESTIMATED GFR 76 mL/min (>60); GLUCOSE RANDOM 310 mg/dL (80-116); MAGNESIUM 1.6 mg/dL (1.8-2.5); POTASSIUM,K 4.9 mmol/L (3.5-5.3); SODIUM,NA 143 mmol/L (135-145)
[2024-03-22] MEDS: Magnesium Oxide 400 MG Tab PO ONE (10:03)
[2024-03-22 10:27] LABS: HEMOGLOBIN A1C 13.2 % (<5.7)
[2024-03-22] MEDS: Insulin Lispro 100 Unit/ML 3 ML KwikPen SUBCUT SCH (12:46)
[2024-03-23 06:46] LABS: BASOPHILS ABSOLUTE AUTO 0.1 x10-3/uL (0.0-0.1); BASOPHILS PERCENT AUTO 0.7 % (0.2-1.5); EOSINOPHILS ABSOLUTE AUTO 0.3 x10-3/uL (0.0-0.8); EOSINOPHILS PERCENT AUTO 3.2 % (0.6-8.1); HEMATOCRIT 31.3 % (34.2-48.2); HEMOGLOBIN 10.6 g/dL (11.4-15.5); LYMPHOCYTES ABSOLUTE AUTO 2.6 x10-3/uL (1.0-4.4); LYMPHOCYTES PERCENT AUTO 33.3 % (18.4-52.1); MEAN CORPUSCULAR HGB CONC 33.8 g/dL (31.9-34.8); MEAN CORPUSCULAR VOLUME 82.8 fL (76.7-100.5); MEAN PLATELET VOLUME 6.7 fL (7.1-12.4); MONOCYTES ABSOLUTE AUTO 0.3 x10-3/uL (0.3-1.0); MONOCYTES PERCENT AUTO 3.8 % (4.4-15.7); NEUTROPHILS ABSOLUTE AUTO 4.6 x10-3/uL (1.5-6.3); PLATELET COUNT,PLT 217 x10(3)uL (151-488); RED BLOOD CELL COUNT 3.78 x10(6)uL (3.60-5.20); WHITE BLOOD CELL COUNT,WBC 7.8 x10-3/uL (3.0-10.3)
[2024-03-23 06:49] LABS: BLOOD UREA NITROGEN,BUN 10 mg/dL (7-18); BUN/CREATININE RATIO 12.5 (9-20); CALCIUM 8.8 mg/dL (8.6-10.2); CARBON DIOXIDE,CO2 30 mmol/L (21-32); CHLORIDE,CL 106 mmol/L (100-110); CREATININE 0.8 mg/dL (0.55-1.02); EST CRCL DRUG DOSING (CG) 62.84 mL/min; ESTIMATED GFR 87 mL/min (>60); GLUCOSE RANDOM 232 mg/dL (80-116); MAGNESIUM 1.6 mg/dL (1.8-2.5); POTASSIUM,K 4.4 mmol/L (3.5-5.3); SODIUM,NA 143 mmol/L (135-145)
[2024-03-23] MEDS: Magnesium Sulfate/Water Premix 2 GM in Premix Bag 1 BAG IV ONE (11:49)
[2024-03-23] MEDS: Insulin Lispro 100 Unit/ML 3 ML KwikPen SUBCUT SCH (12:32)
[2024-03-23] MEDS: Insulin Glargine,Human Rec. Analog 100 Units/ML 3 ML Pen SUBCUT SCH (21:36)
[2024-03-24 06:48] LABS: BASOPHILS ABSOLUTE AUTO 0.1 x10-3/uL (0.0-0.1); BASOPHILS PERCENT AUTO 0.7 % (0.2-1.5); EOSINOPHILS ABSOLUTE AUTO 0.3 x10-3/uL (0.0-0.8); EOSINOPHILS PERCENT AUTO 3.7 % (0.6-8.1); HEMATOCRIT 32.6 % (34.2-48.2); HEMOGLOBIN 11.1 g/dL (11.4-15.5); LYMPHOCYTES ABSOLUTE AUTO 2.8 x10-3/uL (1.0-4.4); MEAN CORPUSCULAR HEMOGLOBIN 28.3 pg (23.9-33.9); MEAN CORPUSCULAR HGB CONC 33.9 g/dL (31.9-34.8); MEAN CORPUSCULAR VOLUME 83.3 fL (76.7-100.5); MEAN PLATELET VOLUME 6.7 fL (7.1-12.4); MONOCYTES ABSOLUTE AUTO 0.3 x10-3/uL (0.3-1.0); MONOCYTES PERCENT AUTO 3.6 % (4.4-15.7); NEUTROPHILS ABSOLUTE AUTO 4.2 x10-3/uL (1.5-6.3); PLATELET COUNT,PLT 242 x10(3)uL (151-488); RED BLOOD CELL COUNT 3.92 x10(6)uL (3.60-5.20); RED CELL DISTRIBUTION WIDTH 13.3 % (12.3-16.5); WHITE BLOOD CELL COUNT,WBC 7.7 x10-3/uL (3.0-10.3)
[2024-03-24 06:50] LABS: BLOOD UREA NITROGEN,BUN 12 mg/dL (7-18); CARBON DIOXIDE,CO2 32 mmol/L (21-32); CHLORIDE,CL 107 mmol/L (100-110); CREATININE 0.8 mg/dL (0.55-1.02); EST CRCL DRUG DOSING (CG) 62.84 mL/min; ESTIMATED GFR 87 mL/min (>60); GLUCOSE RANDOM 159 mg/dL (80-116); POTASSIUM,K 4.7 mmol/L (3.5-5.3); SODIUM,NA 146 mmol/L (135-145)
[2024-03-24] MEDS: Furosemide 20 MG/2 ML VIAL IVPUSH SCH (10:25)
[2024-03-24] MEDS: Magnesium Oxide 400 MG Tab PO ONE (16:44)
[2024-03-25 06:39] LABS: BASOPHILS ABSOLUTE AUTO 0.1 x10-3/uL (0.0-0.1); BASOPHILS PERCENT AUTO 0.7 % (0.2-1.5); EOSINOPHILS ABSOLUTE AUTO 0.3 x10-3/uL (0.0-0.8); EOSINOPHILS PERCENT AUTO 3.2 % (0.6-8.1); HEMATOCRIT 32.7 % (34.2-48.2); HEMOGLOBIN 11.1 g/dL (11.4-15.5); LYMPHOCYTES ABSOLUTE AUTO 2.9 x10-3/uL (1.0-4.4); LYMPHOCYTES PERCENT AUTO 37.3 % (18.4-52.1); MEAN CORPUSCULAR HEMOGLOBIN 28.4 pg (23.9-33.9); MEAN CORPUSCULAR HGB CONC 34.1 g/dL (31.9-34.8); MEAN CORPUSCULAR VOLUME 83.3 fL (76.7-100.5); MEAN PLATELET VOLUME 6.5 fL (7.1-12.4); MONOCYTES ABSOLUTE AUTO 0.4 x10-3/uL (0.3-1.0); MONOCYTES PERCENT AUTO 4.6 % (4.4-15.7); NEUTROPHILS ABSOLUTE AUTO 4.3 x10-3/uL (1.5-6.3); NEUTROPHILS PERCENT AUTO 54.2 % (30.8-76.2); PLATELET COUNT,PLT 241 x10(3)uL (151-488); RED BLOOD CELL COUNT 3.92 x10(6)uL (3.60-5.20); RED CELL DISTRIBUTION WIDTH 13.4 % (12.3-16.5); WHITE BLOOD CELL COUNT,WBC 7.8 x10-3/uL (3.0-10.3)
[2024-03-25 06:43] LABS: BLOOD UREA NITROGEN,BUN 20 mg/dL (7-18); BUN/CREATININE RATIO 22.2 (9-20); CARBON DIOXIDE,CO2 32 mmol/L (21-32); CHLORIDE,CL 107 mmol/L (100-110); CREATININE 0.9 mg/dL (0.55-1.02); EST CRCL DRUG DOSING (CG) 55.86 mL/min; ESTIMATED GFR 76 mL/min (>60); GLUCOSE RANDOM 233 mg/dL (80-116); MAGNESIUM 1.6 mg/dL (1.8-2.5); POTASSIUM,K 4.8 mmol/L (3.5-5.3); SODIUM,NA 143 mmol/L (135-145)
[2024-03-25] MEDS: Magnesium Sulfate/Water Premix 2 GM in Premix Bag 1 BAG IV ONE ×2 (12:55→13:12)
[2024-03-26 06:55] LABS: BASOPHILS ABSOLUTE AUTO 0.1 x10-3/uL (0.0-0.1); BASOPHILS PERCENT AUTO 0.8 % (0.2-1.5); EOSINOPHILS ABSOLUTE AUTO 0.3 x10-3/uL (0.0-0.8); EOSINOPHILS PERCENT AUTO 3.5 % (0.6-8.1); HEMATOCRIT 34.1 % (34.2-48.2); HEMOGLOBIN 11.4 g/dL (11.4-15.5); LYMPHOCYTES ABSOLUTE AUTO 3.1 x10-3/uL (1.0-4.4); LYMPHOCYTES PERCENT AUTO 37.9 % (18.4-52.1); MEAN CORPUSCULAR HEMOGLOBIN 27.8 pg (23.9-33.9); MEAN CORPUSCULAR HGB CONC 33.3 g/dL (31.9-34.8); MEAN CORPUSCULAR VOLUME 83.3 fL (76.7-100.5); MEAN PLATELET VOLUME 6.7 fL (7.1-12.4); MONOCYTES ABSOLUTE AUTO 0.4 x10-3/uL (0.3-1.0); MONOCYTES PERCENT AUTO 4.5 % (4.4-15.7); NEUTROPHILS ABSOLUTE AUTO 4.3 x10-3/uL (1.5-6.3); NEUTROPHILS PERCENT AUTO 53.3 % (30.8-76.2); PLATELET COUNT,PLT 249 x10(3)uL (151-488); RED CELL DISTRIBUTION WIDTH 13.1 % (12.3-16.5); WHITE BLOOD CELL COUNT,WBC 8.1 x10-3/uL (3.0-10.3)
[2024-03-26 07:06] LABS: BLOOD UREA NITROGEN,BUN 25 mg/dL (7-18); BUN/CREATININE RATIO 31.3 (9-20); CALCIUM 9.2 mg/dL (8.6-10.2); CARBON DIOXIDE,CO2 32 mmol/L (21-32); CHLORIDE,CL 107 mmol/L (100-110); CREATININE 0.8 mg/dL (0.55-1.02); EST CRCL DRUG DOSING (CG) 62.84 mL/min; ESTIMATED GFR 87 mL/min (>60); GLUCOSE RANDOM 144 mg/dL (80-116); POTASSIUM,K 4.7 mmol/L (3.5-5.3); SODIUM,NA 144 mmol/L (135-145)
[2024-03-27 06:58] LABS: BLOOD UREA NITROGEN,BUN 23 mg/dL (7-18); BUN/CREATININE RATIO 25.6 (9-20); CALCIUM 9.4 mg/dL (8.6-10.2); CARBON DIOXIDE,CO2 32 mmol/L (21-32); CHLORIDE,CL 106 mmol/L (100-110); CREATININE 0.9 mg/dL (0.55-1.02); EST CRCL DRUG DOSING (CG) 55.86 mL/min; ESTIMATED GFR 76 mL/min (>60); GLUCOSE RANDOM 117 mg/dL (80-116); MAGNESIUM 1.7 mg/dL (1.8-2.5); SODIUM,NA 144 mmol/L (135-145)
[2024-03-27 07:02] LABS: BASOPHILS ABSOLUTE AUTO 0.1 x10-3/uL (0.0-0.1); BASOPHILS PERCENT AUTO 0.9 % (0.2-1.5); EOSINOPHILS ABSOLUTE AUTO 0.3 x10-3/uL (0.0-0.8); EOSINOPHILS PERCENT AUTO 4.3 % (0.6-8.1); HEMOGLOBIN 12.2 g/dL (11.4-15.5); LYMPHOCYTES ABSOLUTE AUTO 3.4 x10-3/uL (1.0-4.4); LYMPHOCYTES PERCENT AUTO 41.2 % (18.4-52.1); MEAN CORPUSCULAR HEMOGLOBIN 28.3 pg (23.9-33.9); MEAN CORPUSCULAR HGB CONC 33.8 g/dL (31.9-34.8); MEAN CORPUSCULAR VOLUME 83.9 fL (76.7-100.5); MEAN PLATELET VOLUME 6.9 fL (7.1-12.4); MONOCYTES ABSOLUTE AUTO 0.3 x10-3/uL (0.3-1.0); MONOCYTES PERCENT AUTO 4.1 % (4.4-15.7); NEUTROPHILS ABSOLUTE AUTO 4.1 x10-3/uL (1.5-6.3); NEUTROPHILS PERCENT AUTO 49.5 % (30.8-76.2); PLATELET COUNT,PLT 264 x10(3)uL (151-488); RED BLOOD CELL COUNT 4.29 x10(6)uL (3.60-5.20); RED CELL DISTRIBUTION WIDTH 13.4 % (12.3-16.5); WHITE BLOOD CELL COUNT,WBC 8.2 x10-3/uL (3.0-10.3)
[2024-03-27] MEDS: Doxycycline 100 MG Tab PO ONE (10:11)
[2024-03-27] MEDS: Magnesium Oxide 400 MG Tab PO ONE (14:31)
== END 2024-03-27 15:00 | disposition home health service (06) | DRG 194 ==
LOC: FB.ED 18:38 → FB.MS 21:11 → OBSVTOIN 21:11
PROVIDERS: ADMIT Emergency Medicine; ATTEND Family Medicine
DX: J18.9 Pneumonia, unspecified organism (principal); E87.20 Acidosis, unspecified; N30.00 Acute cystitis without hematuria; E11.65 Type 2 diabetes mellitus with hyperglycemia; E86.0 Dehydration; I10 Essential (primary) hypertension; E78.00 Pure hypercholesterolemia, unspecified; H54.7 Unspecified visual loss; H91.90 Unspecified hearing loss, unspecified ear; E66.9 Obesity, unspecified; E83.42 Hypomagnesemia; M25.551 Pain in right hip; B96.20 Unspecified Escherichia coli [E. coli] as the cause of diseases classified elsewhere; E78.2 Mixed hyperlipidemia; M54.50 Low back pain, unspecified; G89.29 Other chronic pain; R79.89 Other specified abnormal findings of blood chemistry; Z68.39 Body mass index [BMI] 39.0-39.9, adult; Z98.890 Other specified postprocedural states
CPT/HCPCS: 0240U; 36415; 71046; 73502-RT; 80048; 80053; 81001; 82947; 83036; 83605; 83735; 83880; 84484; 85025; 87040; 87086; 87088; 87186; 93005; 93010; 93306; 94150; 94640; 96360; 97161-GP; 99222; 99232; 99238; 99285; 99285-25; A9270-GY; J0696; J1650; J1815; J1815-GY; J1940; J2470; J3475; J3490; J7030; J7620

== ENCOUNTER 2024-10-06 22:27 | Emergency (ER) | payer BC, MEDICAID | END 2024-10-07 01:23 | disposition home or self-care (01) | LOC: FB.ED 22:27 | DX: G50.1 Atypical facial pain (principal); M77.8 Other enthesopathies, not elsewhere classified; E78.00 Pure hypercholesterolemia, unspecified; I10 Essential (primary) hypertension; E11.9 Type 2 diabetes mellitus without complications; Z79.82 Long term (current) use of aspirin; Z79.4 Long term (current) use of insulin; Z79.899 Other long term (current) drug therapy | CPT/HCPCS: 73030; 99284; A9270 ==